=== PATIENT | male | born 1955 | race Hispanic/Latino ===

== ENCOUNTER 2017-07-13 15:25 | Emergency (ER) | payer MEDICARE, MEDICAID ==
[~2017-07-13] VITALS: Ht 175.3 cm; Wt 100.0 kg
[~2017-07-13 15:25] MED LIST: ASPIRIN 81 LOW81 MG PO; CRESTOR10 MG PO; HYDROXYZ HCL25 MG PO; METOPROLOL SUCC25 MG PO; NAPROSYN250 MG PO
[2017-07-13] MEDS ORDERED: NYSTAT/TRIA1 EX (15:31)
[2017-07-13] MEDS ORDERED: KEFLEX500 MG PO (15:39)
[2017-07-13] MEDS ORDERED: PREDNISONE50 MG PO (15:39)
[2017-07-13] MEDS ORDERED: TERBINAFINE250 M1 PO (15:39)
[2017-07-13 15:57] VITALS: BP 172/92
== END 2017-07-13 15:59 | disposition home or self-care (01) ==
LOC: ED 15:25
DX: B35.4 Tinea corporis (principal)

== ENCOUNTER 2017-09-02 08:08 | Emergency (ER) | payer MEDICARE, MEDICAID ==
[~2017-09-02] VITALS: Ht 175.3 cm; Wt 113.0 kg
[~2017-09-02 08:08] MED LIST changes: +ANTIVERT12.5 MG PO; +ASPIRIN EC81 MG PO; +AZO STANDARD PO; +BACTRIM DS1 TAB PO; +CIPROFLOXACN500 MG PO; +CLOTRIMAZOLE12 TOP; +DOXYCYC MONO100 M1 OR; +DOXYCYCL HYC100 MG PO; +FLEXERIL OR; +FLEXERIL10 MG PO; +FLEXERIL5 MG PO; +HYDROCHLOROT12.5 M1 PO; +HYDROCHLOROT12.5 MG PO; +HYDROCHLOROT25 MG PO; +HYDROCHLOROTH12.5 MG PO; +INDOCIN25 MG PO; +KEFLEX500 MG PO; +LIPITOR20 MG OR; +LORTAB 10-325 M1 TAB PO; +MECLIZINE25 MG PO; +NO MEDS; +NYSTAT/TRIA1 EX; +OMEPRAZOLE20 M2 PO; +OMEPRAZOLE20 MG PO; +PREDNISONE50 MG PO; +PREVACID30 M2 PO; +PRILOSEC OTC20 MG OR; +PROMETHAZINE HC25 MG PO; +PROMETHAZINE25 M1 PO; +PROTONIX40 M2 PO; +PROTONIX40 MG PO; +PYRIDIUM200 MG PO; +ROBITUSSIN AC10 ML OR; +SIMVASTATIN10 MG PO; +SIMVASTATIN40 MG PO; +TERBINAFINE250 M1 PO; +TOPROL XL25 MG PO; +TRAMADOL HCL50 MG PO; +TRIMOX500 MG PO; +ULTRAM50 M1 PO; +ULTRAM50 MG PO; +ZOFRAN4 M1 OR
[2017-09-02 09:14] LABS: ALBUMIN 4.2 g/dL (3.2-5.0); ALKALINE PHOSPHATASE 45 u/l (38-126); ANION GAP 15 (6-22 (CALC)); BILIRUBIN, TOTAL 0.9 mg/dL (0.0-1.4); BUN 11 mg/dL (8-23); BUN/CREATININE RATIO 12 (12-20 (CALC)); CALCIUM 9.3 mg/dL (8.4-10.2); CARBON DIOXIDE 25 mmol/l (22-30); CHLORIDE 108 mmol/l (95-108); CREATININE 0.9 mg/dL (0.7-1.3); GFR > 60 ML/MIN (>=60 (CALC)); GFR FOR AFR.AMER. > 60 ML/MIN (>=60 (CALC)); GLUCOSE 111 mg/dL (82-115); LIPASE 50 u/l (23-300); POTASSIUM 4.4 mmol/l (3.5-5.1); SGOT/AST 22 u/l (19-48); SGPT/ALT 25 u/l (11-66); SODIUM 143 mmol/l (137-146); TOTAL PROTEIN 7.3 g/dL (6.3-8.2)
[2017-09-02 12:08] LABS: HEMATOCRIT 44.1 % (39.0-50.0); HEMOGLOBIN 15.1 g/dl (14.0-18.0); IMMATURE GRANULOCYTES 0.8 % (0.0-1.0); MEAN CELL VOLUME 100.9 fL CALC (80.0-100.0); MEAN CORPUSCULAR HGB 34.6 pG CALC (26.0-32.0); MEAN CORPUSCULAR HGB CONC 34.2 g/L CALC (32.0-36.0); NEUT# 5.51 thou/uL (1.82-7.42); RED BLOOD COUNT 4.37 mill/uL (4.70-6.10); RED CELL DISTRI WIDTH 11.4 % (11.5-15.5)
[2017-09-02 12:59] LABS: URINE BILIRUBIN - DIPSTICK NEGATIVE (NEGATIVE); URINE BLOOD DIPSTICK TRACE-INTACT (NEGATIVE); URINE CLARITY CLEAR; URINE COLOR YELLOW; URINE GLUCOSE - DIPSTICK NEGATIVE (NEGATIVE); URINE KETONE NEGATIVE (NEGATIVE); URINE LEUK ESTERASE NEGATIVE (NEGATIVE); URINE NITRITE - DIPSTICK NEGATIVE (Negative); URINE PH 6.5 (4.5-8.0); URINE PROTEIN - DIPSTICK NEGATIVE (NEG-TRACE); URINE UROBILINOGEN - DIPSTICK 0.2 E.U./dL (0.2)
[2017-09-02 13:09] VITALS: BP 135/72
[2017-09-02] MEDS ORDERED: MECLIZINE25 MG PO (13:12)
== END 2017-09-02 13:17 | disposition home or self-care (01) ==
LOC: ED 08:08
PROVIDERS: Family Medicine
DX: R42 Dizziness and giddiness (principal); I10 Essential (primary) hypertension; F41.9 Anxiety disorder, unspecified; E78.00 Pure hypercholesterolemia, unspecified; G89.29 Other chronic pain; M54.9 Dorsalgia, unspecified

== ENCOUNTER 2017-12-24 10:03 | Emergency (ER) | payer MEDICARE, MEDICAID ==
[~2017-12-24] VITALS: Ht 175.3 cm; Wt 95.0 kg
[2017-12-24 11:21] LABS: URINE BILIRUBIN - DIPSTICK NEGATIVE (NEGATIVE); URINE BLOOD DIPSTICK TRACE-LYSED (NEGATIVE); URINE COLOR YELLOW; URINE GLUCOSE - DIPSTICK NEGATIVE (NEGATIVE); URINE KETONE NEGATIVE (NEGATIVE); URINE LEUK ESTERASE NEGATIVE (NEGATIVE); URINE NITRITE - DIPSTICK NEGATIVE (Negative); URINE PH 5.5 (4.5-8.0); URINE PROTEIN - DIPSTICK NEGATIVE (NEG-TRACE); URINE SPECIFIC GRAVITY <=1.005; URINE UROBILINOGEN - DIPSTICK 0.2 E.U./dL (0.2)
[2017-12-24 11:29] LABS: URINE CLARITY CLEAR
[2017-12-24] MEDS ORDERED: TRAMADOL HYDROC50 MG PO (11:35)
[2017-12-24] MEDS ORDERED: FLEXERIL PO (11:35)
[2017-12-24] MEDS ORDERED: EC-NAPROSYN500 MG PO (11:35)
[2017-12-24 11:45] VITALS: BP 145/89
== END 2017-12-24 11:45 | disposition home or self-care (01) ==
LOC: ED 10:03
PROVIDERS: Emergency Medicine
DX: S39.012A Strain of muscle, fascia and tendon of lower back, initial encounter (principal); M54.2 Cervicalgia; I10 Essential (primary) hypertension; X58.XXXA Exposure to other specified factors, initial encounter; Y93.89 Activity, other specified; Y92.009 Unspecified place in unspecified non-institutional (private) residence as the place of occurrence of the external cause

== ENCOUNTER 2018-02-12 01:59 | Emergency (ER) | payer MEDICARE, MEDICAID ==
[~2018-02-12] VITALS: Ht 175.3 cm; Wt 100.0 kg
[~2018-02-12 01:59] MED LIST changes: +EC-NAPROSYN500 MG PO; +FLEXERIL PO; +TRAMADOL HYDROC50 MG PO
[2018-02-12] MEDS ORDERED: TRAMADOL HCL50 MG PO (02:08)
[2018-02-12] MEDS ORDERED: XYLOCAINE G5 ML/TUBE EX (02:20)
[2018-02-12] MEDS ORDERED: ANUCORT-HC25 MG RE (02:20)
[2018-02-12 02:29] VITALS: BP 158/91
== END 2018-02-12 02:29 | disposition home or self-care (01) ==
LOC: ED 01:59
DX: K64.8 Other hemorrhoids (principal); K62.89 Other specified diseases of anus and rectum

== ENCOUNTER 2018-05-15 00:11 | Emergency (ER) | payer MEDICARE, MEDICAID ==
[~2018-05-15] VITALS: Ht 175.3 cm; Wt 98.0 kg
[~2018-05-15 00:11] MED LIST changes: +ANUCORT-HC25 MG RE; +XYLOCAINE G5 ML/TUBE EX
[2018-05-15 00:36] LABS: URINE BILIRUBIN - DIPSTICK NEGATIVE (NEGATIVE); URINE BLOOD DIPSTICK SMALL (NEGATIVE); URINE COLOR YELLOW; URINE GLUCOSE - DIPSTICK NEGATIVE (NEGATIVE); URINE KETONE NEGATIVE (NEGATIVE); URINE LEUK ESTERASE NEGATIVE (NEGATIVE); URINE NITRITE - DIPSTICK NEGATIVE (Negative); URINE PH 6.5 (4.5-8.0); URINE PROTEIN - DIPSTICK NEGATIVE (NEG-TRACE); URINE SPECIFIC GRAVITY <=1.005; URINE UROBILINOGEN - DIPSTICK 0.2 E.U./dL (0.2)
[2018-05-15 00:40] LABS: URINE CLARITY CLEAR
[2018-05-15 00:49] LABS: URINE RBC 0-2 RBC/hpf (0-5); URINE WBC 0-2 WBC/hpf (0-5)
[2018-05-15] MEDS ORDERED: PYRIDIUM200 MG PO (00:50)
[2018-05-15] MEDS ORDERED: CIPROFLOXACN500 MG PO (00:50)
[2018-05-15 01:03] VITALS: BP 167/88
== END 2018-05-15 01:04 | disposition home or self-care (01) ==
LOC: ED 00:11
PROVIDERS: Emergency Medicine
DX: N30.90 Cystitis, unspecified without hematuria (principal); M54.9 Dorsalgia, unspecified; I10 Essential (primary) hypertension; E78.00 Pure hypercholesterolemia, unspecified

== ENCOUNTER 2018-07-25 09:27 | Day surgery (SDC) | payer MEDICARE, MEDICAID ==
[~2018-07-25 09:27] MED LIST changes: +CEPHALEXIN500 M1 PO; +TAMSULOSIN HCL0.4 MG PO
[2018-07-25] MEDS ORDERED: OXYBUTYNIN5 M1 PO ×2 (14:04→14:45)
[2018-07-25] MEDS ORDERED: GABAPENTIN100 MG PO ×2 (14:04→14:45)
[2018-07-25] MEDS ORDERED: KEFLEX500 MG PO (14:04)
[2018-07-25 14:57] VITALS: BP 162/73
== END 2018-07-25 14:20 | disposition home or self-care (01) ==
LOC: ORM 09:27
PROVIDERS: ATTEND Urology
PROC: 0T7D8DZ Dilation of Urethra with Intraluminal Device, Via Natural or Artificial Opening Endoscopic (ICD-10-PCS; principal; 2018-07-25)
DX: N40.1 Benign prostatic hyperplasia with lower urinary tract symptoms (principal); R35.1 Nocturia; R39.12 Poor urinary stream; I10 Essential (primary) hypertension; E78.5 Hyperlipidemia, unspecified
CPT/HCPCS: L8699

== ENCOUNTER 2018-08-22 06:23 | Emergency (ER) | payer MEDICARE, MEDICAID ==
[~2018-08-22] VITALS: Ht 175.3 cm; Wt 100.0 kg
[~2018-08-22 06:23] MED LIST changes: +GABAPENTIN100 MG PO; +OXYBUTYNIN5 M1 PO
[2018-08-22 06:58] LABS: URINE BILIRUBIN - DIPSTICK NEGATIVE (NEGATIVE); URINE BLOOD DIPSTICK MODERATE (NEGATIVE); URINE COLOR YELLOW; URINE GLUCOSE - DIPSTICK NEGATIVE (NEGATIVE); URINE KETONE NEGATIVE (NEGATIVE); URINE LEUK ESTERASE NEGATIVE (NEGATIVE); URINE NITRITE - DIPSTICK NEGATIVE (Negative); URINE PH 6.5 (4.5-8.0); URINE PROTEIN - DIPSTICK NEGATIVE (NEG-TRACE); URINE SPECIFIC GRAVITY 1.015; URINE UROBILINOGEN - DIPSTICK 0.2 E.U./dL (0.2)
[2018-08-22 06:59] LABS: URINE CLARITY CLEAR
[2018-08-22 07:00] LABS: URINE SQUAMOUS EPITHELIAL CELL FEW EPI/hpf (0-FEW); URINE WBC 0-2 WBC/hpf (0-5)
[2018-08-22] MEDS ORDERED: PYRIDIUM200 MG PO (07:26)
[2018-08-22] MEDS ORDERED: BACTRIM DS1 TAB PO (07:26)
[2018-08-22 07:34] VITALS: BP 148/70
== END 2018-08-22 07:34 | disposition home or self-care (01) ==
LOC: ED 06:23
PROVIDERS: Family Medicine
DX: N34.2 Other urethritis (principal); I10 Essential (primary) hypertension

== ENCOUNTER 2018-10-02 07:43 | Emergency (ER) | payer MEDICARE, MEDICAID ==
[~2018-10-02] VITALS: Ht 175.3 cm; Wt 105.0 kg
[2018-10-02] MEDS ORDERED: OXYBUTYNIN5 M1 PO (07:50)
[2018-10-02 08:19] LABS: URINE BILIRUBIN - DIPSTICK NEGATIVE (NEGATIVE); URINE BLOOD DIPSTICK SMALL (NEGATIVE); URINE CLARITY CLEAR; URINE COLOR YELLOW; URINE GLUCOSE - DIPSTICK NEGATIVE (NEGATIVE); URINE KETONE NEGATIVE (NEGATIVE); URINE LEUK ESTERASE NEGATIVE (NEGATIVE); URINE NITRITE - DIPSTICK NEGATIVE (Negative); URINE PROTEIN - DIPSTICK NEGATIVE (NEG-TRACE); URINE UROBILINOGEN - DIPSTICK 0.2 E.U./dL (0.2)
[2018-10-02 08:29] LABS: URINE RBC 0-2 RBC/hpf (0-5)
[2018-10-02] MEDS ORDERED: FLEXERIL PO (08:34)
[2018-10-02] MEDS ORDERED: MEDDOSEPAK PO (08:34)
[2018-10-02] MEDS ORDERED: TORADOL PO (08:34)
[2018-10-02] MEDS ORDERED: PYRIDIUM200 MG PO (08:35)
[2018-10-02 08:55] VITALS: BP 195/93
== END 2018-10-02 08:58 | disposition home or self-care (01) ==
LOC: ED 07:43
PROVIDERS: Emergency Medicine
DX: S39.012A Strain of muscle, fascia and tendon of lower back, initial encounter (principal); I10 Essential (primary) hypertension; E78.00 Pure hypercholesterolemia, unspecified; X50.0XXA Overexertion from strenuous movement or load, initial encounter; Y93.89 Activity, other specified; Y92.003 Bedroom of unspecified non-institutional (private) residence as the place of occurrence of the external cause

== ENCOUNTER 2018-12-27 01:24 | Emergency (ER) | payer MEDICARE, MEDICAID ==
[~2018-12-27] VITALS: Ht 175.3 cm; Wt 99.5 kg
[~2018-12-27 01:24] MED LIST changes: +MEDDOSEPAK PO; +TORADOL PO
[2018-12-27] MEDS ORDERED: BIAXIN500 MG PO (01:51)
[2018-12-27] MEDS ORDERED: TESSALON PERLE100 MG PO (01:51)
[2018-12-27 02:20] VITALS: BP 152/84
== END 2018-12-27 02:20 | disposition home or self-care (01) ==
LOC: ED 01:24
DX: J20.9 Acute bronchitis, unspecified (principal); I10 Essential (primary) hypertension; E78.00 Pure hypercholesterolemia, unspecified

== ENCOUNTER 2019-02-15 08:05 | Emergency (ER) | payer MEDICARE, MEDICAID ==
[~2019-02-15] VITALS: Ht 175.3 cm; Wt 100.0 kg
[~2019-02-15 08:05] MED LIST changes: +BIAXIN500 MG PO; +TESSALON PERLE100 MG PO
[2019-02-15] MEDS ORDERED: NAPROXEN250 MG PO (08:21)
[2019-02-15] MEDS ORDERED: VOLTAREN1%GEL TOP (08:26)
[2019-02-15] MEDS ORDERED: CYCLOBENZAPR5 MG PO (08:26)
[2019-02-15 09:00] VITALS: BP 158/60
== END 2019-02-15 09:00 | disposition home or self-care (01) ==
LOC: ED 08:05
DX: M54.5 Low back pain (principal); I10 Essential (primary) hypertension

== ENCOUNTER 2019-09-17 01:01 | Emergency (ER) | payer MEDICARE, MEDICAID ==
[~2019-09-17] VITALS: Ht 175.3 cm; Wt 100.0 kg
[~2019-09-17 01:01] MED LIST changes: +CYCLOBENZAPR5 MG PO; +NAPROXEN250 MG PO; +VOLTAREN1%GEL TOP
[2019-09-17 01:26] LABS: URINE BILIRUBIN - DIPSTICK NEGATIVE (NEGATIVE); URINE COLOR ORANGE; URINE GLUCOSE - DIPSTICK 100 mg/dL (NEGATIVE); URINE KETONE NEGATIVE (NEGATIVE); URINE LEUK ESTERASE TRACE (NEGATIVE); URINE PH 6.5 (4.5-8.0); URINE PROTEIN - DIPSTICK 30 mg/dL (NEG-TRACE)
[2019-09-17 01:43] LABS: URINE NITRITE - DIPSTICK NEGATIVE (Negative)
[2019-09-17 01:44] LABS: URINE BACTERIA FEW hpf; URINE BLOOD DIPSTICK NEGATIVE (NEGATIVE); URINE EPITHELIAL CELLS FEW EPI/hpf (0-FEW)
[2019-09-17] MEDS ORDERED: CIPROFLOXACN500 MG PO (01:47)
[2019-09-17 01:58] VITALS: BP 155/68
== END 2019-09-17 01:58 | disposition home or self-care (01) ==
LOC: ED 01:01
DX: R30.0 Dysuria (principal); R11.0 Nausea

== ENCOUNTER 2020-04-27 06:41 | Emergency (ER) | payer MEDICARE, MEDICAID ==
[~2020-04-27] VITALS: Ht 175.3 cm; Wt 97.4 kg
[2020-04-27 07:38] LABS: HEMATOCRIT 42.9 % (39.0-50.0); HEMOGLOBIN 14.3 g/dl (14.0-18.0); IMMATURE GRANULOCYTES 0.9 % (0.0-5.0); MEAN CELL VOLUME 99.3 fL CALC (80.0-100.0); MEAN CORPUSCULAR HGB 33.1 pG CALC (26.0-32.0); MEAN CORPUSCULAR HGB CONC 33.3 g/dL CAL (32.0-36.0); NEUT# 4.64 thou/uL (1.82-7.42); RED BLOOD COUNT 4.32 mill/uL (4.70-6.10); RED CELL DISTRI WIDTH 11.6 % (11.5-15.5)
[2020-04-27 07:56] LABS: ALKALINE PHOSPHATASE 41 u/l (38-126); ANION GAP 10 (6-22 (CALC)); BILIRUBIN, TOTAL 0.9 mg/dL (0.0-1.4); BUN 14 mg/dL (8-23); BUN/CREATININE RATIO 14 (12-20 (CALC)); CARBON DIOXIDE 27 mmol/l (22-30); CHLORIDE 104 mmol/l (95-108); GFR > 60 ML/MIN (>=60 (CALC)); GFR FOR AFR.AMER. > 60 ML/MIN (>=60 (CALC)); POTASSIUM 3.8 mmol/l (3.5-5.1); SGOT/AST 34 u/l (19-48); SODIUM 137 mmol/l (137-146); TOTAL PROTEIN 7.3 g/dL (6.3-8.2)
[2020-04-27 09:01] LABS: URINE BILIRUBIN - DIPSTICK NEGATIVE (NEGATIVE); URINE BLOOD DIPSTICK TRACE-INTACT (NEGATIVE); URINE COLOR YELLOW; URINE GLUCOSE - DIPSTICK NEGATIVE (NEGATIVE); URINE KETONE NEGATIVE (NEGATIVE); URINE LEUK ESTERASE NEGATIVE (NEGATIVE); URINE NITRITE - DIPSTICK NEGATIVE (Negative); URINE PH 6.5 (4.5-8.0); URINE PROTEIN - DIPSTICK NEGATIVE (NEG-TRACE); URINE UROBILINOGEN - DIPSTICK 0.2 E.U./dL (0.2)
[2020-04-27 09:53] VITALS: BP 152/80
== END 2020-04-27 10:05 | disposition home or self-care (01) ==
LOC: ED 06:41
PROVIDERS: Student in an Organized Health Care Education/Training Program
DX: R53.1 Weakness (principal); R42 Dizziness and giddiness; I10 Essential (primary) hypertension; Z20.828 Contact with and (suspected) exposure to other viral communicable diseases

== ENCOUNTER 2020-05-12 14:12 | Inpatient (IN) | payer MEDICARE, MEDICAID ==
[~2020-05-12] VITALS: Ht 175.3 cm; Wt 100.0 kg
--- NOTE | 2020-05-12 14:28 | NUR ---
AMB TO ROOM 14 WITH STEADY GAIT.
[2020-05-12 14:57] LABS: HEMATOCRIT 41.3 % (39.0-50.0); HEMOGLOBIN 14.5 g/dl (14.0-18.0); IMMATURE GRANULOCYTES 0.6 % (0.0-5.0); MEAN CELL VOLUME 96.3 fL CALC (80.0-100.0); MEAN CORPUSCULAR HGB 33.8 pG CALC (26.0-32.0); MEAN CORPUSCULAR HGB CONC 35.1 g/dL CAL (32.0-36.0); NEUT# 5.65 thou/uL (1.82-7.42); RED BLOOD COUNT 4.29 mill/uL (4.70-6.10); RED CELL DISTRI WIDTH 11.4 % (11.5-15.5)
[2020-05-12 15:15] LABS: ALBUMIN 4.3 g/dL (3.2-5.0); ALKALINE PHOSPHATASE 48 u/l (38-126); ANION GAP 12 (6-22 (CALC)); BILIRUBIN, TOTAL 0.7 mg/dL (0.0-1.4); BUN 16 mg/dL (8-23); BUN/CREATININE RATIO 19 (12-20 (CALC)); CARBON DIOXIDE 23 mmol/l (22-30); CHLORIDE 101 mmol/l (95-108); CREATININE 0.8 mg/dL (0.7-1.3); GFR > 60 ML/MIN (>=60 (CALC)); GFR FOR AFR.AMER. > 60 ML/MIN (>=60 (CALC)); POTASSIUM 3.2 mmol/l (3.5-5.1); SGOT/AST 36 u/l (19-48); SODIUM 133 mmol/l (137-146); TOTAL PROTEIN 7.7 g/dL (6.3-8.2)
[2020-05-12 15:20] LABS: D-DIMER 1.04 mg/L (0.19-0.60); PROTHROMBIN TIME 9.6 SECONDS (9.0-12.5)
[2020-05-12 15:24] LABS: MYOGLOBIN 83 ng/mL (0 - 121)
--- NOTE | 2020-05-12 15:28 | NUR ---
PT IS RESTING COMFORTABLY NO DISTRESS NOTED.
[2020-05-12 15:46] LABS: TSH, 3RD GENERATION 0.69 uIU/mL (0.47 - 4.68)
--- NOTE | 2020-05-12 16:28 | NUR ---
PT IS RESTING. AWAITING TEST RESULTS. NO DISTRESS NOTED
[2020-05-12 16:40] LABS: URINE BLOOD DIPSTICK TRACE-INTACT (NEGATIVE); URINE GLUCOSE - DIPSTICK NEGATIVE (NEGATIVE); URINE KETONE NEGATIVE (NEGATIVE); URINE LEUK ESTERASE NEGATIVE (NEGATIVE); URINE NITRITE - DIPSTICK NEGATIVE (Negative); URINE PROTEIN - DIPSTICK 30 mg/dL (NEG-TRACE)
[2020-05-12 16:45] LABS: URINE BILIRUBIN - DIPSTICK NEGATIVE (NEGATIVE); URINE COLOR DK. YELLOW
[2020-05-12 16:46] LABS: URINE RBC 0-2 RBC/hpf (0-5); URINE WBC 0-2 WBC/hpf (0-5)
--- NOTE | 2020-05-12 18:38 | NUR ---
Admission Note Report Given to: NURSE Transported by: X Wheelchair Stretcher Transported with: X Nurse Transporter X Patent IV O2 X Hvac Operations Technician Location: ICU X [facility]
--- NOTE | 2020-05-12 19:01 | NUR ---
PT ARRIVED TO THE UNIT FROM ER AND TRANSFERRED SELF TO BED. PT IS ALERT AND ORIENTED AND ABLE TO MAKE NEEDS KNOWN. PT IS BULGARIAN SPEAKING BUT UNDERSTANDS AND SPEAKS EGYPTIAN. IN BED SITTING UP WITH NO RESPIRATORY DISTRESS NOTED.
--- NOTE | 2020-05-12 20:30 | NUR ---
PT RESTING IN BED, NO SIGNS OF DISTRESS NOTED, RESP EVEN AND UNLABORED. PT ALERT AND ORIENTED X3, PALESTINIAN SPEAKING, STATES HE SPEAKS A LITTLE BIT OF [place], DISCUSSED POC, PT VOICES NO NEEDS OR COMPLAINTS AT THIS TIME, ADMISSION ASSESSMENT COMPLETED, CALL LIGHT IN REACH,CONTINUE TO MONITOR.
--- NOTE | 2020-05-12 23:46 | NUR ---
PT RESTING IN BED WITH EYES CLOSED, NO SIGNS OF DISTRESS NOTED, RESP EVEN AND UNLABORED. CALL LIGHT IN REACH,CONTINUE TO MONITOR.
[2020-05-13 00:16] VITALS: BP 154/84
[2020-05-13 04:53] VITALS: BP 150/80
--- NOTE | 2020-05-13 05:00 | NUR ---
PT RESTING IN BED, NO SIGNS OF DISTRESS NOTED, RESP EVEN AND UNLABORED. AM LABS AND VITALS OBTAINED, PT VOICES NO NEEDS OR COMPLAINTS, PT STATES HE FEELS MUCH BETTER THAN YESTERDAY. CALL LIGHT IN REACH,CONTINUE TO MONITOR.
[2020-05-13 05:41] LABS: HEMATOCRIT 40.3 % (39.0-50.0); HEMOGLOBIN 13.7 g/dl (14.0-18.0); IMMATURE GRANULOCYTES 0.7 % (0.0-5.0); MEAN CELL VOLUME 97.1 fL CALC (80.0-100.0); NEUT# 4.53 thou/uL (1.82-7.42); RED BLOOD COUNT 4.15 mill/uL (4.70-6.10); RED CELL DISTRI WIDTH 11.3 % (11.5-15.5)
[2020-05-13 06:13] LABS: ALBUMIN 3.9 g/dL (3.2-5.0); ALKALINE PHOSPHATASE 47 u/l (38-126); BILIRUBIN, TOTAL 0.6 mg/dL (0.0-1.4); BUN 14 mg/dL (8-23); BUN/CREATININE RATIO 20 (12-20 (CALC)); C-REACTIVE PROTEIN 6.2 mg/dL (0-0.9); CARBON DIOXIDE 25 mmol/l (22-30); CHLORIDE 103 mmol/l (95-108); CREATININE 0.7 mg/dL (0.7-1.3); GFR > 60 ML/MIN (>=60 (CALC)); GFR FOR AFR.AMER. > 60 ML/MIN (>=60 (CALC)); SGOT/AST 30 u/l (19-48); SODIUM 135 mmol/l (137-146)
[2020-05-13 06:14] LABS: ANION GAP 11 (6-22 (CALC)); POTASSIUM 4.2 mmol/l (3.5-5.1)
[2020-05-13 08:00] VITALS: BP 140/75
--- NOTE | 2020-05-13 09:00 | NUR ---
PT SEEN AWAKE, ALERT, WOLOF SPEAKING, AMBULATORY IN ROOM. PT STATES THAT HE FEELS BETTER, NO EVIDENCE OF DISTRESS.
[2020-05-13 11:03] VITALS: BP 150/82
--- NOTE | 2020-05-13 13:00 | NUR ---
PT REMAINS BEFORE, NO COMPLAINT, NO DISTRESS.
[2020-05-13 14:50] VITALS: BP 146/76
[2020-05-13 18:43] VITALS: BP 159/80
--- NOTE | 2020-05-13 21:10 | NUR ---
UPON ENTERING ROOM PT FOUND TO BE RESTING IN BED. APPEARS COMFORTABLE AND IN NO APPARENT DISTRESS. RESPIRATIONS ARE REGULAR AND UNLABORED. PHYSICAL ASSESMENT COMPLETE AT THIS TIME. SCHEDULED MED(S) ADMINISTERED, SEE E-MAR. PLAN OF CARE REVIEWED, PT DENIES QUESTIONS, VERBALIZES UNDERSTANDING. FRESH ICE WATER PROVIDED PER PTS REQUEST. DENIES FURTHER NEEDS AT THIS TIME. ITEMS WITHIN REACH, BED LOCKED IN LOW POSITION W/ BEDRAILS UP X2. CALL MANN WITHIN REACH, AGREES TO CALL PRN.
--- NOTE | 2020-05-14 01:00 | NUR ---
PT APPEARS TO BE SLEEPING COMFORTABLY, NO APPARENT DISTRESS, RESPIRATIONS REGULAR AND UNLABORED. CALL MANN REMAINS WITHIN REACH.
--- NOTE | 2020-05-14 01:45 | NUR ---
COVID-19 SWAB RESULTED. RESULTS ARE POSITIVE. NURSING FISH SALTER AND DR. BREWSTER INFORMED. CON'T AIRBORNE/CONTACT PRECAUTIONS. NO FURTHER INTERVENTION AT THIS TIME.
[2020-05-14 04:00] VITALS: BP 151/84
--- NOTE | 2020-05-14 05:44 | NUR ---
PHYSICAL ASSESMENT UNCHANGED FROM BEGINING OF SHIFT BASELINE. PT AFEBRILE, HEMODYNAMICS STABLE. DENIES NEEDS AT THIS TIME. ITEMS REMAIN WITHIN REACH. BED REMAINS LOCKED IN LOW POSITION W/ BEDRAILS UPX2. CALL MANN REMAINS WITHIN REACH, AGREES TO CALL PRN.
[2020-05-14 08:00] VITALS: BP 160/84
[2020-05-14 11:05] VITALS: BP 150/78
--- NOTE | 2020-05-14 11:15 | NUR ---
PT AWAKE, ALERT, ORIENTED X 3,AMBULATORY IN ROOM. NO REPORT OF SHORTNESS OF BREATH. OXYGEN 91% ON ROOM AIR, TALKED ABOUT POSSIBLE ADDING SUPPLEMENTAL OXYGEN.
--- NOTE | 2020-05-14 14:57 | NUR ---
PT HAS REMAINED BEFORE, SEEN RESTING IN THE BED OR COUCH IN ROOM. NO COMPLAINTS, NO DISTRESS NOTED.
[2020-05-14 15:05] VITALS: BP 160/85
--- NOTE | 2020-05-14 16:57 | NUR ---
PT SEEN RESTING ON COUCH IN ROOM, NO COMPLAINTS, NO DISTRESS.
[2020-05-14 19:20] VITALS: BP 150/89
--- NOTE | 2020-05-14 19:45 | NUR ---
UPON ENTERING ROOM PT FOUND TO BE GETTING OUT OF BATHROOM. GAIT IS STEADY AND BALANCED PT AMBULATED BACK TO BED. APPEARS COMFORTABLE AND IN NO APPARENT DISTRESS. RESPIRATIONS ARE REGULAR AND UNLABORED. PHYSICAL ASSESMENT COMPLETE AT THIS TIME. SCHEDULED MED(S) ADMINISTERED, SEE E-MAR. PLAN OF CARE REVIEWED, PT DENIES QUESTIONS, VERBALIZES UNDERSTANDING. SAFETY RAZOR, SHAVING CREAM AND FRESH ICE WATER PROVIDED PER PTS REQUEST. DENIES FURTHER NEEDS AT THIS TIME. ITEMS WITHIN REACH, BED LOCKED IN LOW POSITION W/ BEDRAILS UP X2. CALL MANN WITHIN REACH, AGREES TO CALL PRN.
[2020-05-14 23:40] VITALS: BP 141/76
--- NOTE | 2020-05-15 01:00 | NUR ---
PT APPEARS TO BE SLEEPING COMFORTABLY, NO APPARENT DISTRESS, RESPIRATIONS REGULAR AND UNLABORED. CALL MANN REMAINS WITHIN REACH.
[2020-05-15 03:20] VITALS: BP 138/76
--- NOTE | 2020-05-15 08:00 | NUR ---
PT RESTING IN BED, NO SIGNS OF DISTRESS NOTED, RESP EVEN AND UNLABORED. NO SIGNS OF DISTRESS NOTED, DISCUSSED POC, PT STATES HE FEELS MUCH BETTER AND WANTS TO GO HOME TODAY. ASSESSMENT COMPLETED, CALL LIGHT IN REACH, CONTINUE TO MONITOR.
[2020-05-15 08:08] VITALS: BP 158/88
[2020-05-15 10:10] LABS: HEMATOCRIT 42.9 % (39.0-50.0); HEMOGLOBIN 14.2 g/dl (14.0-18.0); MEAN CELL VOLUME 99.8 fL CALC (80.0-100.0); MEAN CORPUSCULAR HGB CONC 33.1 g/dL CAL (32.0-36.0); NEUT# 7.92 thou/uL (1.82-7.42); RED BLOOD COUNT 4.3 mill/uL (4.70-6.10); RED CELL DISTRI WIDTH 11.5 % (11.5-15.5)
[2020-05-15 10:33] LABS: ALKALINE PHOSPHATASE 47 u/l (38-126); ANION GAP 11 (6-22 (CALC)); BILIRUBIN, TOTAL 0.5 mg/dL (0.0-1.4); BUN 21 mg/dL (8-23); BUN/CREATININE RATIO 24 (12-20 (CALC)); C-REACTIVE PROTEIN 1.9 mg/dL (0-0.9); CARBON DIOXIDE 29 mmol/l (22-30); CHLORIDE 103 mmol/l (95-108); CREATININE 0.9 mg/dL (0.7-1.3); GFR > 60 ML/MIN (>=60 (CALC)); GFR FOR AFR.AMER. > 60 ML/MIN (>=60 (CALC)); POTASSIUM 3.8 mmol/l (3.5-5.1); SGOT/AST 34 u/l (19-48); SODIUM 139 mmol/l (137-146); TOTAL PROTEIN 7.1 g/dL (6.3-8.2)
[2020-05-15 10:50] VITALS: BP 143/79
--- NOTE | 2020-05-15 12:17 | NUR ---
PT VOICES NO NEEDS OR COMPLAINTS AT THIS TIME, RESP EVEN AND UNLABORED. CALL LIGHT IN REACH, CONTINUE TO MONITOR.
[2020-05-15] MEDS ORDERED: ZITHROMAX250 MG PO (13:41)
--- NOTE | 2020-05-15 14:00 | NUR ---
DISCUSSED DISCHARGE INSTRUCTIONS, PT VERBALIZED UNDERSTANDNG. DISCUSSED COVID AND QUARANTINE FOR 2 WEEKS, PT VERBALIZED UNDERSTANDING. IV REMOVED, CATHETER INTACT.
--- NOTE | 2020-05-15 14:30 | NUR ---
Discharge instructions given. Patient verbalizes understanding of same. Discharged in stable condition via Wheelchair to Home with *Other. All belongings sent with pt.
--- NOTE | 2020-05-16 09:22 | NUR ---
RECD CALL FROM [facility] THIS AM, PT HAS GRAM POSITIVE COCCI IN 1 OF [address] AMBROCIO REQUEST, CONTACTED PT TO FOLLOW UP. PT SAYS "I FEEL GOOD", HAS NOT HAD ANY FEVER/NAUSEA/CHILLS SINCE D/C. ADVISED PT TO MONITOR TEMP AND RETURN IF WORSENING OR SPIKES FEVER. PT VERBALIZED UNDERSTANDING. WILL FOLLOW UP ON FINAL BLOOD CX RESULTS
--- NOTE | 2020-05-17 09:35 | NUR ---
FINAL BLOOD CX RESULTS SHOW CORYNEBACTERIUM, CONTAMINANT. SPOKE WITH MARLA COHEN. SPOKE WITH PT YESTERDAY, FEELS GOOD, NO FEVER/CHILLS ETC. NO TX WARRANTED AT THIS TIME.
== END 2020-05-15 14:36 | disposition home or self-care (01) | DRG 177 ==
LOC: ED 14:12 → ED-I 16:35 → ED 16:52 → ED-I 16:53 → MS2 17:32
PROVIDERS: Nurse Practitioner Family; ADMIT Internal Medicine; ATTEND Internal Medicine
DX: U07.1 COVID-19 (principal); J12.89 Other viral pneumonia; I10 Essential (primary) hypertension; E78.5 Hyperlipidemia, unspecified; I44.7 Left bundle-branch block, unspecified; Z87.891 Personal history of nicotine dependence
CPT/HCPCS: J1650; Q9967

== ENCOUNTER 2020-09-25 05:33 | Emergency (ER) | payer MEDICARE, MEDICAID ==
[~2020-09-25] VITALS: Ht 175.3 cm; Wt 99.0 kg
[~2020-09-25 05:33] MED LIST changes: +ZITHROMAX250 MG PO
[2020-09-25 05:54] VITALS: BP 187/91
[2020-09-25 06:57] LABS: URINE BILIRUBIN - DIPSTICK NEGATIVE (NEGATIVE); URINE BLOOD DIPSTICK TRACE-INTACT (NEGATIVE); URINE CLARITY CLEAR; URINE COLOR YELLOW; URINE GLUCOSE - DIPSTICK NEGATIVE (NEGATIVE); URINE KETONE NEGATIVE (NEGATIVE); URINE LEUK ESTERASE NEGATIVE (Negative); URINE NITRITE - DIPSTICK NEGATIVE (Negative); URINE PH 6.5 (4.5-8.0); URINE PROTEIN - DIPSTICK NEGATIVE (NEG-TRACE); URINE UROBILINOGEN - DIPSTICK 0.2 E.U./dL (0.2)
[2020-09-25 07:53] LABS: HEMATOCRIT 47.2 % (39.0-50.0); HEMOGLOBIN 15.3 g/dl (14.0-18.0); IMMATURE GRANULOCYTES 0.7 % (0.0-5.0); MEAN CELL VOLUME 101.7 fL CALC (80.0-100.0); MEAN CORPUSCULAR HGB CONC 32.4 g/dL CAL (32.0-36.0); RED BLOOD COUNT 4.64 mill/uL (4.70-6.10); RED CELL DISTRI WIDTH 11.5 % (11.5-15.5)
[2020-09-25 09:06] LABS: ALBUMIN 4.3 g/dL (3.2-5.0); ALKALINE PHOSPHATASE 46 u/l (38-126); BILIRUBIN, TOTAL 0.7 mg/dL (0.0-1.4); BUN 16 mg/dL (8-23); BUN/CREATININE RATIO 14 (12-20 (CALC)); CARBON DIOXIDE 29 mmol/l (22-30); CHLORIDE 104 mmol/l (95-108); CREATININE 1.1 mg/dL (0.7-1.3); GFR > 60 ML/MIN (>=60 (CALC)); GFR FOR AFR.AMER. > 60 ML/MIN (>=60 (CALC)); LIPASE 44 u/l (23-300); SGOT/AST 26 u/l (19-48); SODIUM 141 mmol/l (137-146); TOTAL PROTEIN 7.5 g/dL (6.3-8.2)
[2020-09-25 09:07] LABS: ANION GAP 13 (6-22 (CALC)); POTASSIUM 4.7 mmol/l (3.5-5.1)
[2020-09-25] MEDS ORDERED: KEFLEX500 M1 PO (10:02)
== END 2020-09-25 10:30 | disposition home or self-care (01) ==
LOC: ED 05:33
PROVIDERS: Emergency Medicine
DX: N34.2 Other urethritis (principal); I10 Essential (primary) hypertension
CPT/HCPCS: Q9967

== ENCOUNTER 2021-03-09 12:50 | Emergency (ER) | payer MEDICARE, MEDICAID ==
[~2021-03-09 12:50] MED LIST changes: +KEFLEX500 M1 PO
[2021-03-09 13:23] LABS: HEMATOCRIT 43.3 % (39.0-50.0); HEMOGLOBIN 14.4 g/dl (14.0-18.0); IMMATURE GRANULOCYTES 0.6 % (0.0-5.0); MEAN CELL VOLUME 99.5 fL CALC (80.0-100.0); MEAN CORPUSCULAR HGB 33.1 pG CALC (26.0-32.0); MEAN CORPUSCULAR HGB CONC 33.3 g/dL CAL (32.0-36.0); NEUT# 6.96 thou/uL (1.82-7.42); RED BLOOD COUNT 4.35 mill/uL (4.70-6.10); RED CELL DISTRI WIDTH 11.6 % (11.5-15.5)
[2021-03-09] MEDS ORDERED: ROSUVASTATIN CA40 MG PO (13:24)
[2021-03-09] MEDS ORDERED: NAPROXEN375 MG PO (13:26)
[2021-03-09] MEDS ORDERED: ACETAMINOP160 MG/5 M PO (13:28)
[2021-03-09 13:37] LABS: ALBUMIN 4.3 g/dL (3.2-5.0); ALKALINE PHOSPHATASE 47 u/l (38-126); ANION GAP 11 (6-22 (CALC)); BILIRUBIN, TOTAL 0.7 mg/dL (0.0-1.4); BUN 14 mg/dL (8-23); BUN/CREATININE RATIO 11 (12-20 (CALC)); CARBON DIOXIDE 24 mmol/l (22-30); CHLORIDE 103 mmol/l (95-108); CREATININE 1.3 mg/dL (0.7-1.3); GFR 55 ML/MIN (>=60 (CALC)); GFR FOR AFR.AMER. > 60 ML/MIN (>=60 (CALC)); LIPASE 43 u/l (23-300); SGOT/AST 31 u/l (19-48); SODIUM 134 mmol/l (137-146)
[2021-03-09 13:39] LABS: POTASSIUM 3.7 mmol/l (3.5-5.1)
[2021-03-09 13:43] LABS: ACT PARTIAL THROMBO TIME 24.1 SECONDS (20.0-32.5)
[2021-03-09 14:50] VITALS: BP 131/68
== END 2021-03-09 15:24 | disposition left against medical advice (07) ==
LOC: ED 12:50 → ED-I 14:27 → ED 15:24
DX: R07.9 Chest pain, unspecified (principal); I44.7 Left bundle-branch block, unspecified; I10 Essential (primary) hypertension; E78.00 Pure hypercholesterolemia, unspecified; Z91.19 Patient's noncompliance with other medical treatment and regimen; Z20.822 Contact with and (suspected) exposure to COVID-19

== ENCOUNTER 2021-07-14 06:07 | Emergency (ER) | payer MEDICARE, MEDICAID ==
[~2021-07-14] VITALS: Ht 175.3 cm; Wt 100.0 kg
[~2021-07-14 06:07] MED LIST changes: +ACETAMINOP160 MG/5 M PO; +NAPROXEN375 MG PO; +ROSUVASTATIN CA40 MG PO
[2021-07-14] MEDS ORDERED: LISINOPRIL10 MG PO (06:29)
[2021-07-14 07:38] LABS: URINE BILIRUBIN - DIPSTICK NEGATIVE (NEGATIVE); URINE BLOOD DIPSTICK TRACE-INTACT (NEGATIVE); URINE COLOR YELLOW; URINE GLUCOSE - DIPSTICK NEGATIVE (NEGATIVE); URINE KETONE NEGATIVE (NEGATIVE); URINE LEUK ESTERASE NEGATIVE (NEGATIVE); URINE PH 6.5 (4.5-8.0); URINE PROTEIN - DIPSTICK NEGATIVE (NEG-TRACE); URINE UROBILINOGEN - DIPSTICK 0.2 E.U./dL (0.2)
[2021-07-14 07:44] LABS: URINE NITRITE - DIPSTICK NEGATIVE (Negative)
[2021-07-14 08:12] LABS: HEMATOCRIT 43.8 % (39.0-50.0); HEMOGLOBIN 14.5 g/dl (14.0-18.0); IMMATURE GRANULOCYTES 0.3 % (0.0-5.0); MEAN CELL VOLUME 102.3 fL CALC (80.0-100.0); MEAN CORPUSCULAR HGB 33.9 pG CALC (26.0-32.0); MEAN CORPUSCULAR HGB CONC 33.1 g/dL CAL (32.0-36.0); NEUT# 6.63 thou/uL (1.82-7.42); RED BLOOD COUNT 4.28 mill/uL (4.70-6.10); RED CELL DISTRI WIDTH 11.5 % (11.5-15.5)
[2021-07-14 08:30] LABS: ALBUMIN 4.1 g/dL (3.2-5.0); ALKALINE PHOSPHATASE 39 u/l (38-126); AMYLASE 66 u/l (30-110); ANION GAP 11 (6-22 (CALC)); BILIRUBIN, TOTAL 0.7 mg/dL (0.0-1.4); BUN 12 mg/dL (8-23); BUN/CREATININE RATIO 12 (12-20 (CALC)); CARBON DIOXIDE 28 mmol/l (22-30); CHLORIDE 102 mmol/l (95-108); GFR > 60 ML/MIN (>=60 (CALC)); GFR FOR AFR.AMER. > 60 ML/MIN (>=60 (CALC)); LIPASE 45 u/l (23-300); POTASSIUM 3.9 mmol/l (3.5-5.1); SGOT/AST 29 u/l (19-48); SODIUM 137 mmol/l (137-146); TOTAL PROTEIN 7.4 g/dL (6.3-8.2)
[2021-07-14 09:40] VITALS: BP 142/67
== END 2021-07-14 09:40 | disposition home or self-care (01) ==
LOC: ED 06:07
DX: R53.83 Other fatigue (principal); R68.83 Chills (without fever); I10 Essential (primary) hypertension; E78.00 Pure hypercholesterolemia, unspecified; Z20.822 Contact with and (suspected) exposure to COVID-19

== ENCOUNTER 2021-10-05 04:15 | Emergency (ER) | payer MEDICARE, MEDICAID ==
[~2021-10-05] VITALS: Ht 175.3 cm; Wt 100.0 kg
[~2021-10-05 04:15] MED LIST changes: +LISINOPRIL10 MG PO; -METOPROLOL SUCC25 MG PO; +METOPROLOL SUCC50 MG PO
[2021-10-05] MEDS ORDERED: VISTARIL 50MG C50 M1 PO (06:24)
[2021-10-05 06:44] VITALS: BP 146/80
== END 2021-10-05 07:00 | disposition home or self-care (01) ==
LOC: ED 04:15
DX: G47.00 Insomnia, unspecified (principal); F41.9 Anxiety disorder, unspecified; I10 Essential (primary) hypertension; E78.00 Pure hypercholesterolemia, unspecified

== ENCOUNTER 2021-10-25 04:37 | Emergency (ER) | payer MEDICARE, MEDICAID ==
[~2021-10-25] VITALS: Ht 175.3 cm; Wt 100.0 kg
[~2021-10-25 04:37] MED LIST changes: +VISTARIL 50MG C50 M1 PO
[2021-10-25] MEDS ORDERED: ROBITUSSIN AC10 ML PO (06:38)
[2021-10-25] MEDS ORDERED: ZPAK PO (06:38)
[2021-10-25 06:59] VITALS: BP 190/89
== END 2021-10-25 07:05 | disposition home or self-care (01) ==
LOC: ED 04:37
DX: J20.9 Acute bronchitis, unspecified (principal); I10 Essential (primary) hypertension; E78.00 Pure hypercholesterolemia, unspecified; Z20.822 Contact with and (suspected) exposure to COVID-19

== ENCOUNTER 2022-04-26 07:05 | Emergency (ER) | payer MEDICARE, MEDICAID ==
[~2022-04-26] VITALS: Ht 175.3 cm; Wt 100.0 kg
[2022-04-26] VITALS (22 sets, daily range): BP systolic 139–189; BP diastolic 67–100
[~2022-04-26 07:05] MED LIST changes: +ROBITUSSIN AC10 ML PO; +ZPAK PO
[2022-04-26] MEDS ORDERED: NAPROXEN500 MG PO ×2 (07:22→12:47)
[2022-04-26] MEDS ORDERED: TOPROL XL50 MG PO (07:23)
[2022-04-26] MEDS ORDERED: CRESTOR40 MG PO (07:24)
[2022-04-26 07:30] LABS: HEMATOCRIT 46.7 % (39.0-50.0); HEMOGLOBIN 15.7 g/dl (14.0-18.0); IMMATURE GRANULOCYTES 0.4 % (0.0-5.0); MEAN CELL VOLUME 100.2 fL CALC (80.0-100.0); MEAN CORPUSCULAR HGB 33.7 pG CALC (26.0-32.0); MEAN CORPUSCULAR HGB CONC 33.6 g/dL CAL (32.0-36.0); NEUT# 6.09 thou/uL (1.82-7.42); RED BLOOD COUNT 4.66 mill/uL (4.70-6.10); RED CELL DISTRI WIDTH 11.4 % (11.5-15.5)
[2022-04-26 07:44] LABS: ALBUMIN 4.3 g/dL (3.2-5.0); ALKALINE PHOSPHATASE 51 u/l (38-126); ANION GAP 11 (6-22 (CALC)); BILIRUBIN, TOTAL 0.8 mg/dL (0.0-1.4); BUN 19 mg/dL (8-23); BUN/CREATININE RATIO 19 (12-20 (CALC)); CARBON DIOXIDE 27 mmol/l (22-30); CHLORIDE 104 mmol/l (95-108); GFR FOR AFR.AMER. > 60 ML/MIN (>=60 (CALC)); GFR OTHER RACES > 60 ML/MIN (>=60 (CALC)); POTASSIUM 3.9 mmol/l (3.5-5.1); SGOT/AST 32 u/l (19-48); SODIUM 138 mmol/l (137-146); TOTAL PROTEIN 8.3 g/dL (6.3-8.2)
[2022-04-26 07:56] LABS: MYOGLOBIN 76 ng/mL (0 - 121)
[2022-04-26 08:43] LABS: URINE BILIRUBIN - DIPSTICK NEGATIVE (NEGATIVE); URINE BLOOD DIPSTICK TRACE-INTACT (NEGATIVE); URINE COLOR YELLOW; URINE GLUCOSE - DIPSTICK NEGATIVE (NEGATIVE); URINE KETONE NEGATIVE (NEGATIVE); URINE LEUK ESTERASE NEGATIVE (NEGATIVE); URINE NITRITE - DIPSTICK NEGATIVE (Negative); URINE PH 6.5 (4.5-8.0); URINE PROTEIN - DIPSTICK NEGATIVE (NEG-TRACE); URINE UROBILINOGEN - DIPSTICK 0.2 E.U./dL (0.2)
== END 2022-04-26 13:11 | disposition home or self-care (01) ==
LOC: ED 07:05
PROVIDERS: Emergency Medicine
DX: R07.89 Other chest pain (principal); Z20.828 Contact with and (suspected) exposure to other viral communicable diseases; I10 Essential (primary) hypertension

== ENCOUNTER 2022-06-17 08:07 | Observation (INO) | payer MEDICARE, MEDICAID ==
[2022-06-17] VITALS (18 sets, daily range): BP systolic 119–169; BP diastolic 56–91
[~2022-06-17] VITALS: Ht 175.3 cm; Wt 100.0 kg
[~2022-06-17 08:07] MED LIST changes: +CRESTOR40 MG PO; +NAPROXEN500 MG PO; +TOPROL XL50 MG PO
--- NOTE | 2022-06-17 08:10 | NUR ---
PATIENT TO ROOM FOR TRIAGE
[2022-06-17] MEDS ORDERED: MAXZIDE PO (08:34)
[2022-06-17] MEDS ORDERED: ZESTRIL40 MG PO (08:35)
--- NOTE | 2022-06-17 08:43 | NUR ---
PATIENT REPORTS CHEST PAIN HAS DECREASED AFTER NITRO SL. NO SIGNS OF ACUTE DISTRESS NOTED. WAITING ON LABS
[2022-06-17 08:48] LABS: HEMATOCRIT 43.3 % (39.0-50.0); HEMOGLOBIN 14.7 g/dl (14.0-18.0); IMMATURE GRANULOCYTES 0.5 % (0.0-5.0); MEAN CORPUSCULAR HGB 33.3 pG CALC (26.0-32.0); MEAN CORPUSCULAR HGB CONC 33.9 g/dL CAL (32.0-36.0); NEUT# 6.42 thou/uL (1.82-7.42); RED BLOOD COUNT 4.42 mill/uL (4.70-6.10); RED CELL DISTRI WIDTH 11.2 % (11.5-15.5)
[2022-06-17 09:06] LABS: ALBUMIN 4.1 g/dL (3.2-5.0); ALKALINE PHOSPHATASE 43 u/l (38-126); ANION GAP 12 (6-22 (CALC)); BILIRUBIN, TOTAL 0.5 mg/dL (0.0-1.4); BUN 20 mg/dL (8-23); BUN/CREATININE RATIO 13 (12-20 (CALC)); CARBON DIOXIDE 25 mmol/l (22-30); CHLORIDE 104 mmol/l (95-108); CREATININE 1.5 mg/dL (0.7-1.3); GFR FOR AFR.AMER. 56 ML/MIN (>=60 (CALC)); GFR OTHER RACES 47 ML/MIN (>=60 (CALC)); POTASSIUM 3.8 mmol/l (3.5-5.1); SGOT/AST 27 u/l (19-48); SODIUM 138 mmol/l (137-146); TOTAL PROTEIN 7.6 g/dL (6.3-8.2)
--- NOTE | 2022-06-17 09:30 | NUR ---
AT BEDSIDE TO DISCUSS RESULTS AND PLANS FOR ADMIT
--- NOTE | 2022-06-17 10:25 | NUR ---
RONALD MANCILLA CALLED DUE TO PATIENT ED HOLD AT THIS TIME PER MED SURG. PATIENT CURRENTLY RESTING ON STRETCHER. NO SIGNS OF DISTRESS NOTED. WATCHING TV.
--- NOTE | 2022-06-17 11:25 | NUR ---
PATIENT WAITING ON COVID RESULTS
--- NOTE | 2022-06-17 12:00 | NUR ---
Admission Note Report Given to: LALI SOW Transported by: X Wheelchair Stretcher Transported with: X Nurse Transporter X Patent IV O2 X Rotating Equipment Engineer Location: ICU X [facility] BELONGINGS UP WITH PATIENT. CARE RELINQUISHED.
--- NOTE | 2022-06-17 12:30 | NUR ---
PATIENT IS A/OX3, SPEAKS FINNISH AND SLOVENIAN. DENIES PAIN, STATES HE FEELS GREAT, HAPPY THE CHEST PAIN WENT AWAY. 3MM PERRLA BILATERAL EYES. CLEAR LUNG SOUNDS. ACTVE BOWEL SOUNDS. NON TENDER ABDOMEN. STRONG EQUAL HAND FINISH MENDER, NO ARM OR LEG DRIFTS 0 NIH. NO EDEMA PRESENT AT THIS TIME. NO OPEN AREAS. VITALS ARE STABLE. TROPS WERE NEGATIVE. SAFETY MEASURES IN PLACE. CALL LIGHT IN REACH. WILL COTNINUE TO MONITOR PER HOSPITAL'S POLICY.
[2022-06-17] MEDS ORDERED: ASPIRIN ADULT L81 M2 PO (15:48)
--- NOTE | 2022-06-17 16:03 | NUR ---
PATIENT D/C PAPERWORK REVIEWED, STATED HE UNDERSTOOD, SIGNED PAPERWORK IN AGREEMENT, REQUESTED TO WALK DOWN STAIRS, STABLE, NO CHEST PAIN, IV REMOVED.
== END 2022-06-17 16:30 | disposition home or self-care (01) ==
LOC: ED 08:07 → ED-I 09:25 → ED 09:37 → MS2 09:38
PROVIDERS: Family Medicine; ADMIT Internal Medicine; ATTEND Internal Medicine
DX: R07.9 Chest pain, unspecified (principal); I44.7 Left bundle-branch block, unspecified; I10 Essential (primary) hypertension; E78.5 Hyperlipidemia, unspecified; Z87.891 Personal history of nicotine dependence; Z20.822 Contact with and (suspected) exposure to COVID-19
CPT/HCPCS: G0378

== ENCOUNTER 2023-01-11 22:51 | Emergency (ER) | payer MEDICARE, MEDICAID ==
[~2023-01-11] VITALS: Ht 175.3 cm; Wt 99.0 kg
[~2023-01-11 22:51] MED LIST changes: +ASPIRIN ADULT L81 M2 PO; +MAXZIDE PO; +ZESTRIL40 MG PO
[2023-01-12] VITALS (10 sets, daily range): BP systolic 124–179; BP diastolic 62–99
[2023-01-12] MEDS ORDERED: NAPROXEN500 MG PO (01:58)
[2023-01-12] MEDS ORDERED: AMOXICILLIN500 M2 PO (01:58)
== END 2023-01-12 03:56 | disposition home or self-care (01) ==
LOC: ED 22:51
DX: K04.7 Periapical abscess without sinus (principal); K02.9 Dental caries, unspecified; I10 Essential (primary) hypertension; E78.00 Pure hypercholesterolemia, unspecified